=== PATIENT | female | born 1975 | race African-American/Black ===

== ENCOUNTER 2016-11-27 10:10 | Emergency (ER) | payer OTHER ==
[2016-11-27 10:14] VITALS: BP 155/69; PULSE 98; TEMP 98.2; BMI 24.2
[2016-11-27] MEDS ORDERED: IBUPROFEN 600 MG TABLET (FP) PO ONE ×2 (11:09→11:13)
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
== END 2016-11-27 12:07 | disposition home or self-care (01) ==
LOC: JERFT 10:10
DX: S63.501A Unspecified sprain of right wrist, initial encounter (principal); V48.0XXA Car driver injured in noncollision transport accident in nontraffic accident, initial encounter; Y92.488 Other paved roadways as the place of occurrence of the external cause; Y93.89 Activity, other specified; Y99.8 Other external cause status
CPT/HCPCS: 99281-25

== ENCOUNTER 2017-01-21 15:08 | Emergency (ER) | payer OTHER ==
[2017-01-21 15:14] VITALS: BP 172/152; PULSE 118; TEMP 98.4; BMI 23.5
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
== END 2017-01-21 16:23 | disposition left against medical advice (07) ==
LOC: JER 15:08
DX: Z53.21 Procedure and treatment not carried out due to patient leaving prior to being seen by health care provider (principal)
CPT/HCPCS: 99281-25

== ENCOUNTER 2017-01-21 16:46 | Emergency (ER) | payer OTHER ==
[2017-01-21 17:11] VITALS: PULSE 110; TEMP 98.5; BMI 25.0
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
[2017-01-21] MEDS ORDERED: ACETAMINOPHEN 500 MG TABLET (FP) PO ONE (17:55)
[2017-01-21] MEDS ORDERED: ACETAMINOPHEN 325 MG TABLET (FP) ONE (18:09)
[2017-01-21 18:27] LABS: URINE APPEARANCE SLCLOUDY; URINE BILIRUBIN NEGATIVE (NEGATIVE); URINE BLOOD NEGATIVE (NEGATIVE); URINE COLOR LTYELLOW; URINE GLUCOSE (UA) NEGATIVE (NEGATIVE); URINE KETONE NEGATIVE (NEGATIVE); URINE NITRITE NEGATIVE (NEGATIVE); URINE PROTEIN NEGATIVE (NEGATIVE); URINE UROBILINOGEN NEGATIVE mg/dL (0.2-1.0)
[2017-01-21] MEDS ORDERED: IBUPROFEN 400 MG TABLET (FP) PO ONE ×2 (18:41→18:45)
[2017-01-21] MEDS ORDERED: METHOCARBAMOL 500 MG TABLET PO ONE (18:41)
[2017-01-21] MEDS ORDERED: METHOCARBAMOL 500 MG TABLET ONE (18:45)
[2017-01-21 19:16] VITALS: BP 172/110
[2017-01-21 21:41] LABS: URINE LEUK ESTERASE Negative (NEGATIVE)
== END 2017-01-21 20:05 | disposition home or self-care (01) ==
LOC: JER 16:46
DX: M62.838 Other muscle spasm (principal); I10 Essential (primary) hypertension; V43.64XA Car passenger injured in collision with van in traffic accident, initial encounter; Y92.488 Other paved roadways as the place of occurrence of the external cause; Y93.89 Activity, other specified; Y99.8 Other external cause status
CPT/HCPCS: 81003; 84703; 99281-25

== ENCOUNTER 2017-03-20 23:02 | Emergency (ER) | payer OTHER ==
[2017-03-20 23:23] VITALS: TEMP 98.3; BMI 24.2
--- NOTE | 2017-03-20 23:27 | PDOC ---
History of Present Illness - General History Source: Patient Exam Limitations: No Limitations - History of Present Illness Initial Comments: 03/21/17 01:56 Patient is a 41 year old female with no significant past medical history of who presents to the ED with complaints of dizziness that began last night while watching tv. Patient reports watching tv at home when she began experiencing sudden onset of dizziness. She reports calling friend immediately after initial symptoms began who then called EMS. Patient reports having high blood pressure levels whenever she comes into the ED but states it is due to her allergies. She reports having experiencing intermittent palpitations but states she is currently on medication for it. Patient does report having intermittent left side uncomfortability Denies Chest pain, SOB. Denies nausea, vomiting. Denies fevers, chills. Denies contact with sick individuals, out of state traveling. Denies change in diet. Denies blurred vision, loss of consciousness. Allergies: Sudafed Social history: No smoking. No alcohol. No illicit drugs. Surgical history: None PMD: None <Isaak Valentin - Last Filed: 03/21/17 01:56> <Josefa Shah - Last Filed: 03/22/17 00:31> - General Chief Complaint: Lightheaded Stated Complaint: DIZZINESS Time Seen by Provider: 03/20/17 23:13 Past History <Isaak Valentin - Last Filed: 03/21/17 01:56> - Past Medical History COPD: No - Immunization History Immunization Up to Date: Yes - Suicide/Smoking/Psychosocial Hx Smoking History: Never smoked Have you smoked in the past 12 months: No Information on smoking cessation initiated: No Hx Alcohol Use: No Drug/Substance Use Hx: No Substance Use Type: None <Josefa Shah - Last Filed: 03/22/17 00:31> - Past Medical History Allergies/Adverse Reactions: Allergies Allergy/AdvReac Type Severity Reaction Status Date / Time pseudoephedrine HCl AdvReac Verified 03/20/17 23:20 [From Sudafed] Home Medications: Ambulatory Orders Meclizine HCl 25 mg PO TID #60 tablet 03/21/17 Review of Systems - Review of Systems Able to Perform ROS?: Yes Comments:: 03/21/17 01:56 CONSTITUTIONAL: Absent: fever, chills, diaphoresis, generalized weakness, malaise, loss of appetite HEENT: Absent: rhinorrhea, nasal congestion, throat pain, throat swelling, difficulty swallowing, mouth swelling, ear pain, eye pain, visual Changes CARDIOVASCULAR: Absent: chest pain, syncope, palpitations, irregular heart rate, lightheadedness , peripheral edema RESPIRATORY: Absent: cough, shortness of breath, dyspnea with exertion, orthopnea, wheezing, stridor, hemoptysis GASTROINTESTINAL: Absent: abdominal pain, abdominal distension, nausea, vomiting, diarrhea, constipation, melena, hematochezia GENITOURINARY: Absent: dysuria, frequency, urgency, hesitancy, hematuria, flank pain, genital pain MUSCULOSKELETAL: Absent: myalgia, arthralgia, joint swelling SKIN: Absent: rash, itching, pallor HEMATOLOGIC/IMMUNOLOGIC: Absent: easy bleeding, easy bruising, lymphadenopathy, frequent infections ENDOCRINE: Absent: unexplained weight gain, unexplained weight loss, heat intolerance, cold intolerance NEUROLOGIC: +Dizziness. Absent: headache, focal weakness or paresthesias, dizziness, unsteady gait, seizure, mental status changes, bladder or bowel incontinence PSYCHIATRIC: Absent: anxiety, depression, suicidal or homicidal ideation, hallucinations. All Other Systems: Reviewed and Negative <Isaak Valentin - Last Filed: 03/21/17 01:56> *Physical Exam - Vital Signs Last Vital Signs Temp Pulse Resp BP Pulse Ox 98.3 F 99 H 14 170/115 100 03/20/17 23:20 03/20/17 23:20 03/20/17 23:20 03/20/17 23:20 03/20/17 23:20 - Physical Exam Comments: 03/21/17 01:57 GENERAL: +slender woman. +NIHSS negative. Well developed, well nourished. Awake and alert. No acute distress. HEENT: +No diplopia. No lymphadenopathy Normocephalic, atraumatic. PERRLA, EOMI. No conjunctival pallor. Sclera are non- icteric. Moist mucous membranes. Oropharynx is clear. NECK: Supple. Full ROM. No JVD. Carotid pulses 2+ and symmetric, without bruits. No thyromegaly. No lymphadenopathy. CARDIOVASCULAR:+Nistagmus minimal 2 beats Regular rate and rhythm. No murmurs, rubs, or gallops. Distal pulses are 2+ and symmetric. PULMONARY: No evidence of respiratory distress. Lungs clear to auscultation bilaterally. No wheezing, rales or rhonchi. ABDOMINAL: Soft. Non-tender. Non-distended. No rebound or guarding. No organomegaly. Normoactive bowel sounds. MUSCULOSKELETAL Normal range of motion at all joints. No bony deformities or tenderness. No CVA tenderness. EXTREMITIES: +5/5 strength in all extremities. No cyanosis. No clubbing. No edema. No calf tenderness. SKIN: Warm and dry. Normal capillary refill. No rashes. No jaundice. NEUROLOGICAL: +Finger to nose normal. +Heel to christian normal. No ataxia. Alert, awake, appropriate. Cranial nerves 2-12 intact. No deficits to light touch and temperature in face, upper extremities and lower extremities. No motor deficits in the in face, upper extremities and lower extremities. Normoreflexic in the upper and lower extremities. Normal speech. Toes are down- going bilaterally. Gait is normal without ataxia. PSYCHIATRIC: Cooperative. Good eye contact. Appropriate mood and affect. <Isaak Valentin - Last Filed: 03/21/17 01:56> - Vital Signs Last Vital Signs Temp Pulse Resp BP Pulse Ox 98.3 F 99 H 14 170/115 100 03/20/17 23:20 03/20/17 23:20 03/20/17 23:20 03/20/17 23:20 03/20/17 23:20 <Josefa Shah - Last Filed: 03/22/17 00:31> ED Treatment Course - LABORATORY CBC & Chemistry Diagram: 03/21/17 00:10 03/21/17 00:10 - ADDITIONAL ORDERS Additional order review: Laboratory Results 03/21/17 03/21/17 03/21/17 00:10 00:10 00:10 PT with INR 11.00 INR 0.97 Sodium 140 Potassium 4.3 Chloride 104 Carbon Dioxide 27 Anion Gap 9 BUN 11 Creatinine 0.7 Creat Clearance w eGFR > 60 Random Glucose 108 H Calcium 9.4 Total Bilirubin 0.3 AST 26 ALT 20 Alkaline Phosphatase 85 Creatine Kinase 130 Troponin I < 0.02 Total Protein 8.4 H Albumin 4.1 Serum , Qual Negative 03/21/17 00:10 RBC 4.58 MCV 83.0 MCHC 32.7 RDW 14.3 MPV 7.4 L Neutrophils % 60.2 Lymphocytes % 30.4 Monocytes % 6.8 Eosinophils % 1.7 Basophils % 0.9 - Medications Given in the ED: ED Medications Discontinued Medications Generic Name Dose Route Start Last Admin Trade Name Eleanor PRN Reason Stop Dose Admin Meclizine HCl 25 mg 03/20/17 23:45 03/21/17 00:45 Antivert - PO 03/20/17 23:46 25 mg ONCE STA Administration <Isaak Valentin - Last Filed: 03/21/17 01:56> - LABORATORY CBC & Chemistry Diagram: 03/21/17 00:10 03/21/17 00:10 <Josefa Shah - Last Filed: 03/22/17 00:31> *DC/Admit/Observation/Transfer - Attestations Scribe Attestion: 03/21/17 01:57 Documentation prepared by Isaak Valentin, acting as certified medical technician for Josefa Shah MD/DO. <Isaak Valentin - Last Filed: 03/21/17 01:56> <Josefa Shah - Last Filed: 03/22/17 00:31> Diagnosis at time of Disposition: Vertigo - Discharge Dispostion Disposition: HOME Condition at time of disposition: Stable - Prescriptions Prescriptions: Meclizine HCl 25 mg PO TID #60 tablet - Referrals Referrals: Sandi Paige MD [Staff Physician] - Zaid Virgen MD [Staff Physician] - - Patient Instructions Printed Discharge Instructions: DI for Vertigo Additional Instructions: take medications as directed. Please make sudden movements which may cause the dizziness you have been experiencing. Follow up with the doctor referred to you here in the ER. - Post Discharge Activity Forms/Work/School Notes: Back to Work NIH Stroke Scale - Last Known Well Date/Time & Onset Date Last Known Well: 03/20/17 Time Last Known Well: 20:00 - Initial Evaluation Level of consciousness: Alert Ask patient the month and their age: Answers both correctly Ask patient to open & close eyes; make fist and let go: Obeys both correctly Best gaze (horizontal eye movement): Normal Visual field testing: No visual field loss Facial paresis (Show teeth/raise eyebrows/close eyes tight): Normal symmetrical movement Motor Function: Left Arm: Normal Motor Function: Right Arm: Normal (extends arm 90 (or 45) degrees for 10 seconds without drift Motor Function: Left Leg: Normal (extends leg 30 degrees for 5 seconds without drift) Motor Function: Right Leg: Normal (extends leg 30 degrees for 5 seconds without drift) Limb Ataxia: No ataxia Sensory(Use pinprick test arms,legs,trunk,face/side to side): Normal Best language (Describe picture, name items, read sentences): No Aphasia Dysarthria (read several words): Normal articulation Extinction and Inattention: No abnormality - Total Score NIH Stroke Scale Score: 0 <Josefa Shah - Last Filed: 03/22/17 00:31>
[2017-03-20] MEDS ORDERED: MECLIZINE HCL 12.5 MG TABLET PO STA (23:45)
[2017-03-21 00:27] LABS: BASO % 0.9 % (0-2.0); EOS % 1.7 % (0-4.5); HEMOGLOBIN 12.4 GM/dL (10.7-15.3); LYMPH % 30.4 % (8-40); MCH 27.1 pg (25.7-33.7); MCHC 32.7 g/dl (32.0-36.0); MEAN PLT VOLUME 7.4 fl (7.5-11.1); MONO % 6.8 % (3.8-10.2); NEUT % 60.2 % (42.8-82.8); PLATELET COUNT 477 K/MM3 (134-434); RBC 4.58 M/mm3 (3.60-5.2); RDW 14.3 % (11.6-15.6); WHITE BLOOD COUNT 7.6 K/mm3 (4.0-10.0)
[2017-03-21] MEDS ORDERED: MECLIZINE HCL 25 MG TABLET (FP) ONE ×2 (00:28→06:53)
[2017-03-21 00:42] LABS: INR 0.97 (0.82-1.09)
[2017-03-21 01:00] LABS: ALBUMIN 4.1 g/dl (3.4-5.0); ANION GAP 9 (8-16); BILIRUBIN,TOTAL 0.3 mg/dL (0.2-1.0); BLOOD UREA NITROGEN 11 mg/dL (7-18); CALCIUM 9.4 mg/dL (8.5-10.1); CHLORIDE 104 mmol/L (98-107); CO2 27 mmol/L (21-32); CREATININE 0.7 mg/dL (0.55-1.02); GLUCOSE,RANDOM 108 mg/dL (74-106); SGPT/ALT 20 U/L (12-78); SODIUM 140 mmol/L (136-145); TOT PROT 8.4 g/dl (6.4-8.2)
[2017-03-21 01:03] LABS: ALK PHOS 85 U/L (45-117)
[2017-03-21 01:09] LABS: POTASSIUM 4.3 mmol/L (3.5-5.1); SGOT/AST 26 U/L (15-37)
[2017-03-21] MEDS ORDERED: ONDANSETRON 4 MG/2 ML VIAL ONE (02:02)
[2017-03-21] MEDS ORDERED: ONDANSETRON 4 MG/2 ML VIAL IVPUSH ONE (02:07)
[2017-03-21] MEDS ORDERED: diazePAM 2 MG TABLET PO ONE (02:44)
[2017-03-21] MEDS ORDERED: diazePAM 2 MG TABLET ONE (02:49)
[2017-03-21] MEDS ORDERED: MECLIZINE HCL 25 MG TABLET (FP) PO STA (06:34)
--- NOTE | 2017-03-21 06:37 | PDOC ---
*Physical Exam - Vital Signs Last Vital Signs Temp Pulse Resp BP Pulse Ox 98.3 F 99 H 18 157/96 100 03/20/17 23:20 03/21/17 01:10 03/21/17 01:10 03/21/17 01:10 03/20/17 23:20 ED Treatment Course - LABORATORY CBC & Chemistry Diagram: 03/21/17 00:10 03/21/17 00:10 - ADDITIONAL ORDERS Additional order review: Laboratory Results 03/21/17 03/21/17 03/21/17 00:10 00:10 00:10 PT with INR 11.00 INR 0.97 Sodium 140 Potassium 4.3 Chloride 104 Carbon Dioxide 27 Anion Gap 9 BUN 11 Creatinine 0.7 Creat Clearance w eGFR > 60 Random Glucose 108 H Calcium 9.4 Total Bilirubin 0.3 AST 26 ALT 20 Alkaline Phosphatase 85 Creatine Kinase 130 Troponin I < 0.02 Total Protein 8.4 H Albumin 4.1 Serum , Qual Negative 03/21/17 00:10 RBC 4.58 MCV 83.0 MCHC 32.7 RDW 14.3 MPV 7.4 L Neutrophils % 60.2 Lymphocytes % 30.4 Monocytes % 6.8 Eosinophils % 1.7 Basophils % 0.9 - Medications Given in the ED: ED Medications Discontinued Medications Generic Name Dose Route Start Last Admin Trade Name Freq PRN Reason Stop Dose Admin Diazepam 2 mg 03/21/17 02:44 03/21/17 02:59 Valium - PO 03/21/17 02:45 2 mg ONCE ONE Administration Meclizine HCl 25 mg 03/20/17 23:45 03/21/17 00:45 Antivert - PO 03/20/17 23:46 25 mg ONCE STA Administration Ondansetron HCl 4 mg 03/21/17 02:07 03/21/17 02:09 Zofran Injection IVPUSH 03/21/17 02:08 4 mg ONCE ONE Administration *DC/Admit/Observation/Transfer Diagnosis at time of Disposition: Vertigo - Discharge Dispostion Disposition: HOME Condition at time of disposition: Stable Admit: No - Prescriptions Prescriptions: Meclizine HCl 25 mg PO TID #60 tablet - Referrals Referrals: Zaid Virgen MD [Staff Physician] - Sandi Paige MD [Staff Physician] - - Patient Instructions Printed Discharge Instructions: DI for Vertigo Additional Instructions: take medications as directed. Please make sudden movements which may cause the dizziness you have been experiencing. Follow up with the doctor referred to you here in the ER. - Post Discharge Activity Forms/Work/School Notes: Back to Work
[2017-03-21 06:38] LABS: URINE APPEARANCE CLEAR; URINE BILIRUBIN NEGATIVE (NEGATIVE); URINE BLOOD NEGATIVE (NEGATIVE); URINE COLOR COLORLESS; URINE GLUCOSE (UA) NEGATIVE (NEGATIVE); URINE KETONE NEGATIVE (NEGATIVE); URINE LEUK ESTERASE NEGATIVE (NEGATIVE); URINE NITRITE NEGATIVE (NEGATIVE); URINE PROTEIN NEGATIVE (NEGATIVE); URINE UROBILINOGEN NEGATIVE mg/dL (0.2-1.0)
[2017-03-21 06:48] VITALS: BP 148/93; PULSE 107
--- NOTE | 2017-03-21 10:30 | EKG ---
Test Reason : Blood Pressure : / mmHG Vent. Rate : 099 BPM Atrial Rate : 099 BPM P-R Int : 180 ms QRS Dur : 082 ms QT Int : 352 ms P-R-T Axes : 046 034 033 degrees QTc Int : 451 ms NORMAL SINUS RHYTHM POSSIBLE LEFT ATRIAL ENLARGEMENT BORDERLINE ECG NO PREVIOUS ECGS AVAILABLE Confirmed by CEFERINO NORMAN, PEEWEE ([id number]) on 03/21/2017 10:30:24 AM Referred By: Confirmed By:PEEWEE DE LA VEGA MD
== END 2017-03-21 07:22 | disposition home or self-care (01) ==
LOC: JER 23:02
PROC: 3E033GC Introduction of Other Therapeutic Substance into Peripheral Vein, Percutaneous Approach (ICD-10-PCS; principal; 2017-03-20)
DX: R42 Dizziness and giddiness (principal)
CPT/HCPCS: 36415; 70450-TC; 80053; 81003; 82550; 84484; 84703; 85025; 85610; 93005; 93010; 99283-25